=== PATIENT | male | born 1995 | race Hispanic/Latino ===

== ENCOUNTER 2018-01-01 06:46 | Emergency (ER) | payer OTHER ==
[2018-01-01 06:52] VITALS: RESP 18; O2SAT 98
[2018-01-01] MEDS ORDERED: Sodium Chloride 0.9% 1,000 ML IV STA (07:32)
--- NOTE | 2018-01-01 08:01 | ED PDOC ---
HPI: Abdomen Time Seen by Provider: 01/01/18 07:13 Chief Complaint (Nursing): GI Problem Chief Complaint (Provider): Vomiting History Per: Patient History/Exam Limitations: no limitations Onset/Duration Of Symptoms: Days (1 day ago) Current Symptoms Are (Timing): Still Present Location Of Pain/Discomfort: Diffuse Additional Complaint(s): 22 yo male presents to the ED complaining of vomiting and diffuse abdominal pain , onset of 1 day ago. Patient admits to drinking alcohol and reports that the vomiting started at roughly 16:00, yesterday. Patient denies any diarrhea, dizziness, leg pain, neck pain, headache, chest pain, shortness of breath, fever , or any urinary symptoms. Past Medical History Reviewed: Historical Data, Nursing Documentation, Vital Signs Vital Signs: Last Vital Signs Temp 98.3 F 01/01/18 06:50 Pulse 101 H 01/01/18 06:50 Resp 18 01/01/18 06:50 BP 125/58 L 01/01/18 06:50 Pulse Ox 98 01/01/18 08:05 - Medical History PMH: No Chronic Diseases - Surgical History Surgical History: No Surg Hx - Family History Family History: States: Unknown Family Hx - Social History Current smoker - smoking cessation education provided: No Ex-Smoker (has not smoked in the last 12 months): No Alcohol: Social Drugs: Denies - Allergies Allergies/Adverse Reactions: Allergies Allergy/AdvReac Type Severity Reaction Status Date / Time No Known Allergies Allergy Verified 01/01/18 07:13 Review of Systems ROS Statement: Except As Marked, All Systems Reviewed And Found Negative Constitutional: Negative for: Fever Cardiovascular: Negative for: Chest Pain Respiratory: Negative for: Cough, Shortness of Breath Gastrointestinal: Positive for: Nausea, Vomiting, Abdominal Pain (diffuse). Negative for: Diarrhea Genitourinary Male: Negative for: Dysuria, Frequency, Incontinence Musculoskeletal: Negative for: Neck Pain Neurological: Negative for: Headache, Dizziness Physical Exam - Reviewed Nursing Documentation Reviewed: Yes Vital Signs Reviewed: Yes - Physical Exam Appears: Positive for: Non-toxic, No Acute Distress Head Exam: Positive for: ATRAUMATIC, NORMAL INSPECTION, NORMOCEPHALIC Skin: Positive for: Normal Color, Warm, DRY Eye Exam: Positive for: EOMI, Normal appearance, PERRL ENT: Positive for: Normal ENT Inspection Neck: Positive for: Normal, Painless ROM Cardiovascular/Chest: Positive for: Regular Rate, Rhythm. Negative for: Murmur Respiratory: Positive for: Normal Breath Sounds. Negative for: Respiratory Distress Gastrointestinal/Abdominal: Positive for: Soft, Tenderness (mild and diffuse) Back: Positive for: Normal Inspection. Negative for: L CVA Tenderness, R CVA Tenderness Extremity: Positive for: Normal ROM. Negative for: Pedal Edema, Deformity Neurologic/Psych: Positive for: Alert, Oriented. Negative for: Motor/Sensory Deficits - Laboratory Results Result Diagrams: 01/01/18 07:50 01/01/18 07:50 Interpretation Of Abn Labs: 535 lipase - ECG O2 Sat by Pulse Oximetry: 98 (RA) Pulse Ox Interpretation: Normal - Progress ED Course And Treament: 1450: Stable. AAOx3. Dr. Thomas to take over care. Fu on ct. Medical Decision Making Medical Decision Making: Time: --07:32 Impression: --Vomiting and Abdominal Pain in setting of Alcohol Ingestion Plan: --Alcohol Serum --Labs --Lipase --IV Fluids --Zofran 4mg IV Reassess -- Scribe Attestation: Documented by Benitez Osborn acting as a scribe for Haja Aceves MD. Disposition - Clinical Impression Clinical Impression: Abdominal pain - Patient ED Disposition Is Patient to be Admitted: Transfer of Care - Disposition Disposition Time: 14:50 Condition: FAIR Patient Signed Over To: Talisha Thomas
[2018-01-01 08:34] LABS: ALB/GLOB RATIO 1.5 (1.0-2.1); ALBUMIN 4.7 g/dL (3.5-5.0); ALT/SGPT 39 U/L (21-72); AST/SGOT 30 U/L (17-59); BASO % 0.2 % (0.0-2.0); BLOOD UREA NITROGEN 16 mg/dl (9-20); CALCIUM 9.9 mg/dL (8.4-10.2); GFR AFRICAN-AMERICAN > 60; GFR NON-AFRICAN AMERICAN > 60; HEMOGLOBIN 15.9 g/dL (12.0-18.0); LIPASE 535 U/L (23-300); LYMPH # 0.7 K/uL (1.0-4.3); LYMPH % 6.6 % (20.0-40.0); MEAN CELL VOLUME 91.6 fl (80.0-94.0); MEAN CORPUSCULAR HEMOGLOBIN 31.4 pg (27.0-31.0); MEAN CORPUSCULAR HGB CONC 34.3 g/dL (33.0-37.0); MEAN PLATELET VOLUME 9.9 fl (7.2-11.7); MONO # 0.3 K/uL (0.0-0.8); MONO % 2.6 % (0.0-10.0); NEUT # 9.7 K/uL (1.8-7.0); NEUT % 90.6 % (50.0-75.0); NRBC % 0.1 % (0.0-0.0); PLATELET COUNT 189 K/uL (130-400); RBC 5.05 Mil/uL (4.40-5.90); RED CELL DISTRIBUTION WIDTH 13.1 % (11.5-14.5); WHITE BLOOD COUNT 10.8 K/uL (4.8-10.8)
[2018-01-01 10:19] LABS: BASOPHIL 1 % (0-2); LYMPHOCYTE 7 % (20-50); MONOCYTE 4 % (0-10); NEUTROPHIL 88 % (42-75); PLATELET ESTIMATE NORMAL (NORMAL); TOTAL CELLS COUNTED 100
[2018-01-01] MEDS ORDERED: Iohexol 240 (50 ml) PO ONE (10:57)
[2018-01-01] MEDS ORDERED: Iohexol 240 (50 ml) ONE (11:14)
[2018-01-01] MEDS ORDERED: Lactated Ringer's 500 ML IV SCH (14:30)
[2018-01-01] MEDS ORDERED: Iohexol 300 100 ML IJ ONE (14:47)
--- NOTE | 2018-01-01 15:11 | ED PDOC ---
- Laboratory Results Result Diagrams: 01/01/18 07:50 01/01/18 07:50 - ECG O2 Sat by Pulse Oximetry: 98 (RA) Pulse Ox Interpretation: Normal Medical Decision Making Medical Decision Making: Time: --15:00 Plan: -- Reassess --Provider received endorsement from Dr. Aceves pending ER workup, reassessment, and ER disposition Accession No. 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 Additional 2 dimensional sagittal and coronal reformats generated. Radiation dose: Total exam DLP = This CT exam was performed using one or more of the following dose reduction techniques: Automated exposure control, adjustment of the mA and/or kV according to patient size, and/or use of iterative reconstruction technique. FINDINGS: LOWER THORAX: Minimal passive/ dependent type atelectasis both posterior sulci. Lung bases are otherwise clear. No infiltrate effusion or basilar pneumothorax. Heart size within range of normal. No significant pericardial effusion. There is a tiny hiatal hernia. Note made of what appears represent some what muscular appearing slips mobile of the diaphragm bilaterally. LIVER: Liver exhibits normal size measuring approximately 16.6 cm in CC dimension. No obvious hepatic mass or collection. Minor fatty hepatic infiltration felt be present. Portal and splenic veins are opacified. . GALLBLADDER AND BILE DUCTS: Gallbladder is physiologically distended. No evidence of intraluminal gallbladder calculi. PANCREAS: The the pancreas appears unremarkable without masses collections or calcifications. SPLEEN: There is a small approximately 13.3 mm rounded enhancing structure within the posterior margin of the spleen that is of uncertain etiology though could represent a tiny hemangioma. Followup interval recommended. ADRENALS: There are no adrenal lesions. KIDNEYS AND URETERS: Kidneys demonstrate symmetric nephrograms. No evidence of nephrolithiasis or hydronephrosis. BLADDER: Urinary bladder is physiologically distended. No evidence of intraluminal urinary bladder calculi. REPRODUCTIVE: Unremarkable. Prostate gland appears unremarkable. APPENDIX: What is felt to represent a normal of contrast filled appendix best seen on axial image number [id number] and coronal image number [id number]. No evidence of acute appendicitis. BOWEL: Evaluation of the bowel is limited due to incomplete opacification. The stomach is under distended which presumably accounts for slight thick-walled appearance. Possibility of a gastritis not excluded. Visualized loops of small bowel exhibit normal contour and caliber. No evidence acute mechanical small bowel obstruction with oral contrast material in the large bowel extending to the level of the mid transverse colon region. The no definitive evidence of abnormal mural wall thickening. There may be a few scattered colonic diverticula along the distal descending/sigmoid colon junction. No radiographic evidence of acute diverticulitis. PERITONEUM: Unremarkable. No fluid collection. No free air. LYMPH NODES: Unremarkable. No enlarged lymph nodes. VASCULATURE: Unremarkable. No aortic aneurysm. BONES: No acute compression fractures no retropulsed fragments. Note made of what appears represent a broad-based disc bulge with or localized left parasagittal protrusion component L4-L5 level. OTHER FINDINGS: None. IMPRESSION: Impression: No acute intra abdominal pathology. Mild fatty hepatic infiltration. Small hiatal hernia. There appears to be a few scattered colonic diverticula however no radiographic evidence acute diverticulitis. Suspect small hemangioma within the splenic parenchyma. Follow-up CT scan interval could be performed to assess stability. Findings discussed with Dr. Aceves at approximately 4:45 p.m. with written down and read back verification. DW pt findings. Pt feels better. Vitals normalized. Stable for discharge. Scribe Attestation: Documented by Benitez Osborn acting as a scribe for Talisha Thomas MD. Provider Attestation: All medical record entries made by the Scribe were at my direction and personally dictated by me. I have reviewed the chart and agree that the record accurately reflects my personal performance of the history, physical exam, medical decision making, and the department course for this patient. I have also personally directed, reviewed, and agree with the discharge instructions and disposition. Disposition - Clinical Impression Clinical Impression: Abdominal pain, Vomiting - POA Present On Arrival: None - Disposition Disposition: Routine/Home Disposition Time: 17:03 Condition: IMPROVED Additional Instructions: BLAND DIET FOR THE NEXT 24 HOURS WITH PLENTY OF HYDRATING FLUIDS FOLLOW UP WITH YOUR DOCTOR IN 2-3 DAYS TO SEE HOW YOU ARE DOING RETURN TO ER FOR INTRACTABLE PAIN OR VOMITING, FAINTING OR NEAR FAINTING, BREATHING DIFFICULTIES OR ANY OTHER WORRISOME SYMPTOMS Prescriptions: Dicyclomine [Bentyl] 20 mg PO BID PRN #20 tab PRN Reason: abdominal pain Ondansetron ODT [Zofran ODT] 1 odt PO Q6 PRN #20 odt PRN Reason: Nausea/Vomiting Instructions: Nausea and Vomiting, Adult, Stomach Ache and Stomach Upset Forms: [facility] ED School/Work Excuse
--- NOTE | 2018-01-01 16:53 | CT ---
PROCEDURE: CT abdomen pelvis dated 01/01/2018 HISTORY: Abdominal pain COMPARISON: No prior study available for comparison TECHNIQUE: Contiguous axial images of the abdomen and pelvis performed following oral and intravenous injection of approximately 100 cc of Omnipaque 300 contrast material. Additional 2 dimensional sagittal and coronal reformats generated. Radiation dose: Total exam DLP = This CT exam was performed using one or more of the following dose reduction techniques: Automated exposure control, adjustment of the mA and/or kV according to patient size, and/or use of iterative reconstruction technique. FINDINGS: LOWER THORAX: Minimal passive/ dependent type atelectasis both posterior sulci. Lung bases are otherwise clear. No infiltrate effusion or basilar pneumothorax. Heart size within range of normal. No significant pericardial effusion. There is a tiny hiatal hernia. Note made of what appears represent some what muscular appearing slips mobile of the diaphragm bilaterally. LIVER: Liver exhibits normal size measuring approximately 16.6 cm in CC dimension. No obvious hepatic mass or collection. Minor fatty hepatic infiltration felt be present. Portal and splenic veins are opacified. . GALLBLADDER AND BILE DUCTS: Gallbladder is physiologically distended. No evidence of intraluminal gallbladder calculi. PANCREAS: The the pancreas appears unremarkable without masses collections or calcifications. SPLEEN: There is a small approximately 13.3 mm rounded enhancing structure within the posterior margin of the spleen that is of uncertain etiology though could represent a tiny hemangioma. Followup interval recommended. ADRENALS: There are no adrenal lesions. KIDNEYS AND URETERS: Kidneys demonstrate symmetric nephrograms. No evidence of nephrolithiasis or hydronephrosis. BLADDER: Urinary bladder is physiologically distended. No evidence of intraluminal urinary bladder calculi. REPRODUCTIVE: Unremarkable. Prostate gland appears unremarkable. APPENDIX: What is felt to represent a normal of contrast filled appendix best seen on axial image number [id number] and coronal image number [id number]. No evidence of acute appendicitis. BOWEL: Evaluation of the bowel is limited due to incomplete opacification. The stomach is under distended which presumably accounts for slight thick-walled appearance. Possibility of a gastritis not excluded. Visualized loops of small bowel exhibit normal contour and caliber. No evidence acute mechanical small bowel obstruction with oral contrast material in the large bowel extending to the level of the mid transverse colon region. The no definitive evidence of abnormal mural wall thickening. There may be a few scattered colonic diverticula along the distal descending/sigmoid colon junction. No radiographic evidence of acute diverticulitis. PERITONEUM: Unremarkable. No fluid collection. No free air. LYMPH NODES: Unremarkable. No enlarged lymph nodes. VASCULATURE: Unremarkable. No aortic aneurysm. BONES: No acute compression fractures no retropulsed fragments. Note made of what appears represent a broad-based disc bulge with or localized left parasagittal protrusion component L4-L5 level. OTHER FINDINGS: None. IMPRESSION: Impression: No acute intra abdominal pathology. Mild fatty hepatic infiltration. Small hiatal hernia. There appears to be a few scattered colonic diverticula however no radiographic evidence acute diverticulitis. Suspect small hemangioma within the splenic parenchyma. Follow-up CT scan interval could be performed to assess stability. Findings discussed with Dr. Aceves at approximately 4:45 p.m. with written down and read back verification.
[2018-01-01 17:53] VITALS: BP 113/74; PULSE 86; TEMP 97.6
== END 2018-01-01 17:25 | disposition home or self-care (01) ==
LOC: H.ER 06:46
DX: R10.9 Unspecified abdominal pain (principal); R11.10 Vomiting, unspecified; K44.9 Diaphragmatic hernia without obstruction or gangrene
CPT/HCPCS: 74177; 80053; 80320; 83690; 85025; 96374; 96375; 99284; J1885; J2405; J7040; Q9966; Q9967